=== PATIENT | female | born 1940 | race Caucasian/White ===

== ENCOUNTER → 2016-07-11 | Outpatient (CLI) | payer OTHER, BC | LOC: BMCIMAGING 13:23 | PROVIDERS: ATTEND Internal Medicine | DX: Z12.31 Encounter for screening mammogram for malignant neoplasm of breast (principal); Z80.3 Family history of malignant neoplasm of breast | CPT/HCPCS: G0202 ==

== ENCOUNTER → 2017-05-10 | Outpatient (CLI) | payer OTHER, BC | LOC: BMCIMAGING 14:36 | PROVIDERS: ATTEND Internal Medicine Endocrinology, Diabetes & Metabolism | DX: Z13.820 Encounter for screening for osteoporosis (principal); M85.80 Other specified disorders of bone density and structure, unspecified site ==

== ENCOUNTER → 2017-07-13 | Outpatient (CLI) | payer OTHER, BC | LOC: BHFA 15:00 | PROVIDERS: ATTEND Internal Medicine Cardiovascular Disease | DX: R06.09 Other forms of dyspnea (principal) ==

== ENCOUNTER → 2017-07-16 | Outpatient (CLI) | payer OTHER, BC | LOC: BMCIMAGING 12:01 | PROVIDERS: ATTEND Internal Medicine | DX: Z12.31 Encounter for screening mammogram for malignant neoplasm of breast (principal) ==

== ENCOUNTER 2018-05-09 05:42 | Day surgery (SDC) | payer OTHER, BC ==
[2018-05-09] MEDS ORDERED: ceFAZolin 2 GM/DEXTROSE 100 ML IV ONE (06:01)
[2018-05-09] MEDS ORDERED: LR 1,000 ML IV ONE (06:02)
--- NOTE | 2018-05-09 07:11 | PDHPUP ---
History & Physical Update H&P update statement: This history and physical update is based on an assessment of the patient which was completed after admission or registration (within 24 hours), but prior to the surgery/procedure. H&P update: H&P reviewed & patient examined, no change in patient's condition since H&P completed
[2018-05-09] MEDS ORDERED: BUPIVACAINE 0.25% 10 ML SDV ONE (08:33)
[2018-05-09] MEDS ORDERED: BACITRACIN 50,000 UNITS/10 ML SYR IRR ONE (08:34)
[2018-05-09] MEDS ORDERED: BUPIVACAINE/EPI 0.25% 30 ML SDV ONE (08:34)
[2018-05-09] MEDS ORDERED: MIDAZOLAM 2 MG/2 ML VIAL IVP ONE (11:23)
--- NOTE | 2018-05-09 11:24 | PDANEPAE ---
ANE History of Present Illness here for L foot ANE Past Medical History - Cardiovascular History Hx Hypertension: Yes Hx Arrhythmias: No Hx Chest Pain: No Hx Coronary Artery / Peripheral Vascular Disease: No Hx CHF / Valvular Disease: No Hx Palpitations: No Cardiovascular History Comment: HYPERLIPIDEMIA - Pulmonary History Hx COPD: No Hx Asthma/Reactive Airway Disease: No Hx Recent Upper Respiratory Infection: No Hx Oxygen in Use at Home: No Hx Sleep Apnea: Yes Sleep Apnea Screening Result - Last Documented: Positive Pulmonary History Comment: SOB, DYSPNEA. 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 RESIDUAL BALANCE ISSUES - USES NORDIC POLES. OCCAS DROOL. 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 DIFFICULTY SWALLOWING - Other Health History Other Health History: DIPLOPIA. SCOLIOSIS. CHRONIC PAIN. OSTEOARTHRITIS. WEAKNESS IN LEGS. BALANCE ISSUES. ACNE. BRUISE EASILY - Chronic Pain History Chronic Pain: Yes (BACK, L SHOULDER) - Surgical History Prior Surgeries: R FOOT HARDWARE REMOVAL. CATARACTS 14. R FOOT, BUNIONECTOMY 13. L HIP REPLACEMENT X2 12,13. JUANC SHOULDER REPLACEMENT 09. JUAN C KNEE REPLACEMENT , 06. CRANIOTOMY 96. CSECTION X3. CHOLECYSTECTOMY. D & C X2. LAP KNEE SURG X2 ANE Review of Systems Review of Systems: - Exercise capacity METS (RN): 4 METS ANE Patient History - Allergies Allergies/Adverse Reactions: baclofen Allergy (Verified 11/16/15 10:09) Other-Enter Comments grapefruit Allergy (Verified 11/16/15 10:09) Hives metaxalone [From Skelaxin] Allergy (Verified 11/16/15 10:09) Other-Enter Comments - Home Medications Home Medications: ARIPiprazole [Abilify 2 mg (*)] 2 mg PO DAILY 11/09/15 [Last Taken 12/09/15 08: 00] Aspirin [Aspirin 81mg (*)] 81 mg PO DAILY 11/09/15 [Last Taken 3 Days Ago ~05/06] Cholecalciferol Vit D3 [Vitamin D3 2000 units tab (OTC)] 2,000 units PO DAILY [Last Taken 05/06/18] Diclofenac Sodium [Voltaren 75 MG (*)] 75 mg PO BIDMEAL 11/09/15 [Last Taken 02/12] Herbals/Supplements -Info Only 1 ea PO DAILY 11/09/15 [Last Taken 2 Days Ago ~] Hydroxychloroquine Sulfate [Plaquenil 200 mg (*)] 200 mg PO BID 11/09/15 [Last Taken 05/08/18] Lastacaft Opth Drops 1 drop EACHEYE DAILY 11/09/15 [Last Taken 05/08/18] Multivitamins [Multivitamin (*)] 1 each PO DAILY 11/09/15 [Last Taken 05/06/18] Pantoprazole Sodium [Protonix 40mg (*)] 40 mg PO DAILY 11/09/15 [Last Taken ] Pravastatin Sodium [Pravachol] 40 mg PO DAILY18 11/09/15 [Last Taken 05/08/18] traZODone [traZODONE 100MG (*)] 200 mg PO HS 11/09/15 [Last Taken 05/08/18] Nitrofurantoin Macrocrystal [Nitrofurantoin] 50 mg PO HS 12/09/15 [Last Taken 2 Years Ago ~05/09/16] D-Mannose 05/06/18 [Last Taken 05/09/18] Doxycycline Calcium 500 mg 05/09/18 [Last Taken 05/09/18] - NPO status NPO Since - Liquids (Date): 05/09/18 NPO Since - Liquids (Time): 05:00 NPO Since - Solids (Date): 05/09/18 NPO Since - Solids (Time): 05:00 - Smoking Hx Smoking Status: Never smoked - Family Anes Hx Family Hx Anesthesia Complications: NONE ANE Labs/Vital Signs - Vital Signs Blood Pressure: 128/76 Heart Rate: 78 Respiratory Rate: 14 O2 Sat (%): 96 Height: 167.64 cm Weight: 85.275 kg
[2018-05-09] MEDS ORDERED: HYDROCODONE/APAP 5/325 TAB PO PRN (11:26)
[2018-05-09] MEDS ORDERED: NS 500 ML IV PRN (11:26)
[2018-05-09] MEDS ORDERED: HYDROmorphONE/DILAUDID 2 MG/ML INJ IVP PRN (11:26)
[2018-05-09] MEDS ORDERED: DEXAMETHASONE 4 MG/ML VIAL IVP PRN (11:26)
[2018-05-09] MEDS ORDERED: ONDANSETRON 4 MG/2 ML VIAL IVP PRN (11:26)
[2018-05-09] MEDS ORDERED: oxyCODONE IR 5 MG TAB PO PRN (11:26)
[2018-05-09] MEDS ORDERED: NALOXONE HCL 0.4 MG/ML INJ IVP PRN (11:26)
[2018-05-09] MEDS ORDERED: fentaNYL 100 MCG/2 ML INJ IVP PRN (11:26)
[2018-05-09] MEDS ORDERED: ALBUTEROL 3 ML DEYVIAL IH PRN (11:26)
[2018-05-09] MEDS ORDERED: LR 500 ML IV PRN (11:26)
[2018-05-09] MEDS ORDERED: fentaNYL 100 MCG/2 ML INJ ONE (11:33)
[2018-05-09] MEDS ORDERED: PROPOFOL/EMULSION 500 MG/50 ML BOTTLE IV ONE (11:35)
[2018-05-09] MEDS ORDERED: PROPOFOL 200 MG/20 ML VIAL ONE ×2 (12:39→12:59)
--- NOTE | 2018-05-09 13:47 | POSTOPPROG ---
Post Op Note Date of Operation: 05/09/18 Surgeon: Frank Orona Manager Local: none Anesthesiologist: marely Anesthesia: IV Sedation Pre-op Diagnosis: djd 2 and 3 met-cuneiform joints left Post-op Diagnosis: same Indication: pain Procedure: fusion 2 and 3 met-cuneifrom joints Findings: none Inf/Abcess present in the surg proc area at time of surgery?: No Depth: Deep Incisional (Fascial) EBL: Minimal Total fluids administered: 20cc 9/1 .25% marcaine plain and with epi Complications: none Drains: Other (none)
[2018-05-09 15:01] VITALS: BP 119/74
--- NOTE | 2018-05-10 13:37 | GOP ---
DATE OF OPERATION: 05/09/2018 SURGEON: Frank Orona DPM DRYCLEANER: None. ANESTHESIA: Local with MAC by Dr. Crenshaw. PREOPERATIVE DIAGNOSIS: 1. Degenerative arthritis, left 2nd metatarsal cuneiform joint. 2. Degenerative arthritis, left 3rd metatarsal cuneiform joint. POSTOPERATIVE DIAGNOSIS: 1. Degenerative arthritis, left 2nd metatarsal cuneiform joint. 2. Degenerative arthritis, left 3rd metatarsal cuneiform joint. 3. Dorsal exostosis, left foot. PROCEDURE PERFORMED: 1. Fusion, left 2nd metatarsal cuneiform joint. 2. Fusion, left 3rd metatarsal cuneiform joint. 3. Dorsal exostectomy, left foot. FINDINGS: ESTIMATED BLOOD LOSS: Minimal. DESCRIPTION OF PROCEDURE: Patient presented to [facility] and was cleared for the in tended procedure. Patient was taken to the operating room and placed on the table in supine position . IV sedation was started per the anesthesia department. Foot was anesthetized in an infiltrative n erve block fashion. Foot was prepped, scrubbed and draped in the usual sterile fashion. Following e xsanguination by elevation, Esmarch bandage, pneumatic ankle tourniquet was inflated to 250 mmHg. At this time, attention was directed to the dorsal aspect of the left foot, where, utilizing C-arm fluo roscopy, the 2nd/3rd metatarsal cuneiform joint was identified. At this time, a linear incision was made running proximal to this area through the site and carried distally in between the 2nd and 3rd m etatarsals. The incision was carried deep utilizing sharp and blunt dissection, making sure that all neurovascular structures were identified and retracted at this time. All superficial bleeders were cauterized. The incision was carried down deep to the level of the joint capsule. Upon a linear cap sulotomy, capsular tissues were dissected free medially and laterally to allow for adequate exposure to the site. At this time, large dorsal exostosis was appreciable running from the 1st metatarsal cu neiform joint over to the 4th metatarsal cuneiform joint. It was decided this would be resected and this was performed with an osteotome and mallet. The area was rongeured before being smoothed down w ith a bone rasp. The area was flushed with copious amounts of sterile saline at this time. Upon com pletion of this, attention was directed to the 2nd and 3rd metatarsal cuneiform joints. 0.062 K-wire s were driven into each of the 4 bones and a pin distractor was placed over the K-wires to allow for adequate visualization of the 2nd and 3rd metatarsal cuneiform joints. At this time, substantial deg enerative arthritic changes were seen at the joint with grade 4 chondromalacial changes in the joint surface. It was decided that fusion would be necessary. At this time, utilizing an osteotome and ma llet as well as a curette and high-speed side-cutting rotary bur, the remaining cartilaginous surface s were removed. The area was again flushed with copious amounts of sterile saline. The area was the n subchondrally drilled on all 4 sides of the fusion sites with a 0.045 inch K-wire. The areas were then temporarily fixated with the 0.062 inch K-wire after the pin distractors had been removed. C-ar m fluoroscopy showed good alignment of the fusion sites with no gapping visible clinically. It was d ecided, at this time, that the [employer] tom would be utilized. The area was measured appropria tely and an 18 mm bridge of the staple was chosen. The areas were drilled appropriately and the stap les were placed into the sites. Upon completion of this, excellent compression at the fusion sites w as noted. The areas were again flushed with copious amounts of sterile saline before the capsule was closed with 3-0 Vicryl, followed by subcutaneous closure with 5-0 Vicryl and skin closure with 5-0 n ylon. The area was dressed with Betadine-soaked Adaptics, 4 x 4's, Sherin and Ana Maria before the pneum atic ankle tourniquet was released for a total tourniquet time of 76 minutes. The patient was then p laced into a posterior splint and taken to the recovery room with vital signs stable, vascular supply intact, digits 1 through 5 bilaterally. The patient will be kept completely nonweightbearing for e next 4 weeks. PATHOLOGY: None. HEMOSTASIS: PAT at 250 mmHg by 76 minutes. MATERIALS: [employer] 18 x 14 mm tom x2. INJECTABLES: 20 cc 9:1 ratio 0.25% Marcaine plain, 0.25% Marcaine with epi preoperatively. COMPLICATIONS: None. /[id number]/MODL
== END 2018-05-09 14:56 | disposition home or self-care (01) ==
LOC: FSGY 05:42
PROVIDERS: ATTEND Podiatrist Primary Podiatric Medicine
DX: M19.072 Primary osteoarthritis, left ankle and foot (principal); M77.42 Metatarsalgia, left foot; M25.775 Osteophyte, left foot; E03.9 Hypothyroidism, unspecified; I10 Essential (primary) hypertension; K21.9 Gastro-esophageal reflux disease without esophagitis; F41.9 Anxiety disorder, unspecified; Z96.649 Presence of unspecified artificial hip joint
CPT/HCPCS: C1713; J0690; J2250; J2704; J3010

== ENCOUNTER → 2018-08-21 | Outpatient (CLI) | payer OTHER, BC | LOC: FIMAGING 12:45 | PROVIDERS: ATTEND Internal Medicine | DX: R22.41 Localized swelling, mass and lump, right lower limb (principal) ==

== ENCOUNTER → 2018-08-23 | Outpatient (CLI) | payer OTHER, BC | LOC: BMCIMAGING 12:48 | PROVIDERS: ATTEND Internal Medicine | DX: Z12.31 Encounter for screening mammogram for malignant neoplasm of breast (principal) ==